=== PATIENT | male | born 1990 | race American Indian/Alaskan Native ===

== ENCOUNTER 2019-04-16 13:10 | Outpatient (CLI) | payer OTHER ==
--- NOTE | 2019-04-16 14:31 | Cat Scan Report ---
CT HEAD WITHOUT CONTRAST INDICATION / CLINICAL INFORMATION: C/O PERSISTENT HEADACHES/R/O BRAIN MASS. TECHNIQUE: Axial imaging performed from the skull apex through the skull base without the use of cont rast. Sagittal and coronal reformatted images. All CT scans at this location are performed using CT dose reduction for ALARA by means of automated exposure control. COMPARISON: None available. FINDINGS: CEREBRAL PARENCHYMA: No significant abnormality. No acute territorial infarct. HEMORRHAGE: None. EXTRA-AXIAL SPACES: Normal in size and morphology for the patient's age. VENTRICULAR SYSTEM: Normal in size and morphology for the patient's age. MIDLINE SHIFT OR HERNIATION: None. CEREBELLUM / BRAINSTEM: No significant abnormality. CALVARIUM: No significant abnormality. ORBITS: Normal as visualized. PARANASAL SINUSES / MASTOID AIR CELLS: Normal as visualized. SOFT TISSUES of HEAD: No significant abnormality. ADDITIONAL FINDINGS: None. IMPRESSION: Cranial CT scan within normal limits. Signer Name: Linden Ureña Jr, MD Signed: 04/16/2019 2:27 PM Workstation Name: [id number]
== END 2019-04-16 13:11 | disposition home or self-care (01) ==
LOC: CT 13:10
PROVIDERS: ATTEND Psychiatry & Neurology Psychiatry
DX: G44.89 Other headache syndrome (principal); R22.0 Localized swelling, mass and lump, head
CPT/HCPCS: 70450